=== PATIENT | female | born 1965 | race Caucasian/White ===

== ENCOUNTER 2024-11-09 10:19 | Outpatient (CLI) | payer MEDICARE, MEDICAID ==
[~2024-11-09] VITALS: Ht 180.3 cm; Wt 122.5 kg
[2024-11-09 10:43] LABS: TOTAL HEMOGLOBIN 15.6 G/dl (12.0-16.0)
[2024-11-09] MEDS: albuterol 2.5 MG/3 ML nebule NEB ONE (11:20)
[2024-11-09 11:24] VITALS: PULSE 67; RESP 12; O2SAT 96
[2024-11-09 11:38] VITALS: PULSE 66; RESP 16
== END 2024-11-09 23:59 | disposition home or self-care (01) ==
LOC: RT 10:19
PROVIDERS: ATTEND Internal Medicine Pulmonary Disease
DX: R94.2 Abnormal results of pulmonary function studies (principal); J44.9 Chronic obstructive pulmonary disease, unspecified
CPT/HCPCS: 85018; 94060; 94727; 94729; 94760